=== PATIENT | female | born 1985 | race African-American/Black ===

== ENCOUNTER 2016-11-07 07:28 | Emergency (ER) | payer MEDICAID ==
[~2016-11-07] VITALS: Ht 160 cm; Wt 60.0 kg
[~2016-11-07 07:28] MED LIST: CHLO.12%30 SSP; IBUP800T23 PO; PENI500T PO; VENTAER INH
[2016-11-07 07:30] VITALS: BP 116/74; PULSE 75; RESP 16; TEMP 98.5; O2SAT 99
--- NOTE | 2016-11-07 07:47 | PD ---
HPI . left sided ear pain and face/jaw pain x 1 day Chief Complaint: ENT Complaint Time Seen by Provider: 07:46 Travel History International Travel<30 days: No Contact w/Intl Traveler<30days: No Traveled to known affect area: No History of Present Illness HPI 31 yr old female with hx of asthma here with c/o left ear pain, facial pain and jaw pain x 1 day. Patient tells me that she's had a history of oral abscess and she thinks one may be coming again. She denies any fever or chills. She has no other complaints. PFSH Past Medical History Asthma: Yes Diminished Hearing: No Headaches: Yes Psychiatric: Yes (PTSD) Respiratory: Yes (asthma) ?: Not LMP: 10/29/16 : 5 Para: 4 Miscarriage: 2 Social History Alcohol Use: No Tobacco Use: Yes (3 cigarettes a day) Substance Use: Yes (marijuana, occasional, 02/17/2016) Allergies-Medications (Allergen,Severity, Reaction): Coded Allergies: No Known Allergies (Verified , 11/07/16) Reported Meds & Prescriptions Reported Meds & Active Scripts Active Reported Proair Hfa 8.5 GM Inh (Albuterol Sulfate) 90 Mcg/Act Aer 2 Puff INH Q4-6H PRN 108 mcg/actuation Review of Systems General / Constitutional: No: Fever Eyes: No: Visual changes HENT: Positive: Earache, Other (facial pain), No: Headaches Cardiovascular: No: Chest Pain or Discomfort Respiratory: No: Shortness of Breath Gastrointestinal: No: Abdominal Pain Genitourinary: No: Dysuria Musculoskeletal: No: Pain Skin: No Rash Neurologic: No: Weakness Psychiatric: No: Depression Endocrine: No: Polydipsia Hematologic/Lymphatic: No: Easy Bruising Physical Exam Narrative GENERAL: AAO x 3, no acute distress, Well-nourished, well-developed patient. SKIN: Warm and dry. No visible rashes or bruising. HEAD: Normocephalic and atraumatic. EYES: No scleral icterus. No injection or drainage. EOM intact, PERRLA ENT: No nasal drainage noted. Mucous membranes pink. Airway patent. Oropharynx is normal. There is no definitive fluid or abscess collection. Left TM with clear effusion, tenderness to the left side maxillary sinus NECK: Supple, trachea midline. No JVD. No lymphadenopathy CARDIOVASCULAR: Regular rate and rhythm without murmurs, gallops, or rubs. RESPIRATORY: Breath sounds equal bilaterally. No accessory muscle use. No rhonchi or rales. GASTROINTESTINAL: Visual inspection is normal EXTREMITIES: No cyanosis or edema. BACK: No obvious deformity. No CVA tenderness. NEURO: CN II-12 intact, PSYCH: AAO x 3, normal affect. Data Data Last Documented VS Vital Signs Date Time Temp Pulse Resp B/P Pulse Ox O2 Delivery O2 Flow Rate FiO2 11/07/16 07:30 98.5 75 16 116/74 99 Room Air MDM Medical Decision Making Medical Screen Exam Complete: Yes Emergency Medical Condition: Yes Medical Record Reviewed: Yes Differential Diagnosis Sinusitis, otitis media, less likely oral abscess Narrative Course 31-year-old female here with complaints of left-sided ear pain, facial pain and jaw pain. On examination she appears to have an acute sinusitis. Although he did treat her with Augmentin, which will also cover for oral bugs. I've advised her to return to the emergency department for any worsening of her condition. Patient verbalized understanding of instructions, questions were answered, and thanked me for their care. I advised them if their condition worsens, please return to the nearest emergency room for further care. Diagnosis Primary Impression: Acute sinusitis Qualified Code: J01.00 - Acute non-recurrent maxillary sinusitis Patient Instructions: General Instructions Additional Instructions: Please return to emergency department if your symptoms return or worsen. Follow up with your primary care provider. Take medications as prescribed. Med/Other Pt SpecificInfo: Prescription(s) given Disposition: DISCHARGE HOME Condition: Stable Neisha Piña Nov 07, 2016 07:47
[2016-11-07] MEDS ORDERED: AUGM875T3 PO (07:52)
[2016-11-07] MEDS ORDERED: ALBUAER3 INH (07:53)
[2016-11-07 08:08] VITALS: BP 120/77; TEMP 97.8
== END 2016-11-07 08:08 | disposition home or self-care (01) ==
LOC: NEPK 07:28
DX: J01.90 Acute sinusitis, unspecified (principal); J45.909 Unspecified asthma, uncomplicated; F43.10 Post-traumatic stress disorder, unspecified; F17.210 Nicotine dependence, cigarettes, uncomplicated; Z79.899 Other long term (current) drug therapy
CPT/HCPCS: 99282

== ENCOUNTER 2017-02-27 09:16 | Emergency (ER) | payer MEDICAID ==
[~2017-02-27] VITALS: Ht 160 cm; Wt 60.0 kg
[~2017-02-27 09:16] MED LIST changes: +ALBUAER3 INH; -CHLO.12%30 SSP; -IBUP800T23 PO; -PENI500T PO; -VENTAER INH
[2017-02-27 09:18] VITALS: BP 123/79; PULSE 80; RESP 20; TEMP 98.2; O2SAT 100
--- NOTE | 2017-02-27 10:15 | PD ---
HPI Chief Complaint: Cold / Flu Symptoms Time Seen by Provider: 09:50 Travel History International Travel<30 days: No Contact w/Intl Traveler<30days: No Traveled to known affect area: No History of Present Illness HPI The patient was seen and examined in the presence of the nurse. This patient reports that she is 10 weeks , using menstrual dates. She had a positive home test. She complains of vaginal discharge. No pelvic pain or bleeding. Denies fever. Symptoms severity is mild to moderate. She also has asthma and was wheezing and is running out of her breathing inhaler. She has a cough. Sometimes when she coughs she feels chest tightness but that' s the only time. Duration 4 days. No Alleviating factors. No exacerbating factors PFSH Past Medical History Asthma: Yes Diminished Hearing: No Headaches: Yes Psychiatric: Yes (PTSD) Respiratory: Yes (asthma) ?: LMP: Dec 12 2016 : 7 Para: 5 Miscarriage: 1 Social History Alcohol Use: Yes Tobacco Use: Yes Substance Use: No Allergies-Medications (Allergen,Severity, Reaction): Coded Allergies: No Known Allergies (Verified Adverse Reaction, Unknown, 02/27/17) Reported Meds & Prescriptions Reported Meds & Active Scripts Active Reported Proair Hfa 8.5 GM Inh (Albuterol Sulfate) 90 Mcg/Act Aer 2 Puff INH Q4-6H PRN 108 mcg/actuation Review of Systems General / Constitutional: No: Fever Eyes: No: Visual changes HENT: Positive: Rhinorrhea, Congestion, No: Headaches Cardiovascular: No: Chest Pain or Discomfort Respiratory: Positive: Cough, Wheezing, No: Shortness of Breath Gastrointestinal: No: Abdominal Pain Genitourinary: Positive: Discharge, No: Dysuria Musculoskeletal: No: Pain Skin: No Rash Neurologic: No: Weakness Psychiatric: No: Depression Endocrine: No: Polydipsia Hematologic/Lymphatic: No: Easy Bruising Physical Exam Narrative GENERAL: Well-nourished, well-developed patient in no apparent distress. SKIN: Focused skin assessment reveals no rash and nodules. Skin is Warm and dry. HEAD: Atraumatic. Normocephalic. EYES: Pupils equal and round. No scleral icterus. No injection or drainage. ENT: No nasal bleeding or discharge. Mucous membranes pink and moist. Nares shows rhinorrhea NECK: Trachea midline. No JVD. CARDIOVASCULAR: Regular rate and rhythm. No murmur appreciated. RESPIRATORY: No accessory muscle use. Clear to auscultation. Breath sounds equal bilaterally. GASTROINTESTINAL: Abdomen soft, non-tender, nondistended. Hepatic and splenic margins not palpable. MUSCULOSKELETAL: No obvious deformities. No clubbing. No cyanosis. No edema. NEUROLOGICAL: Awake and alert. No obvious cranial nerve deficits. Motor grossly within normal limits. Normal speech. PSYCHIATRIC: Appropriate mood and affect; insight and judgment normal. Pelvic: Minor white/rocha discharge in the vault. No blood or lesions or cervical motion tenderness Data Data Last Documented VS Vital Signs Date Time Temp Pulse Resp B/P (MAP) Pulse Ox O2 Delivery O2 Flow Rate FiO2 02/27/17 09:59 96 Room Air 02/27/17 09:18 98.2 80 20 123/79 (94) Orders Orders Electrocardiogram (02/27/17 ) Gc And Chlamydia Pcr (02/27/17 10:07) Wet Prep Profile (02/27/17 10:07) Labs Laboratory Tests Test 02/27/17 10:15 Clue Cells (Wet Prep) PRESENT Vaginal Trichomonas (Wet Prep) PRESENT Vaginal Yeast (Wet Prep) NONE SEEN MDM Medical Decision Making Medical Screen Exam Complete: Yes Emergency Medical Condition: Yes Medical Record Reviewed: Yes Differential Diagnosis PID, vaginitis, cervicitis, asthma, URI Narrative Course I have reviewed the patient's electronic medical record. GC and chlamydia obtained Wet prep shows both Trichomonas and BV I'm going to prescribe her Flagyl which should cover both She needs to get care and she has a physician to call for that Advised to stop smoking Diagnosis Primary Impression: Trichomonas vaginitis Additional Impressions: Bacterial vaginosis Bronchitis Additional Instructions: Stop smoking Take Flagyl for one week Follow-up with your [employer] physician for care Med/Other Pt SpecificInfo: Prescription(s) given Scripts Metronidazole (Flagyl) 500 Mg Tab 500 MG PO TID for Infection for 7 Days, TAB 0 Refills Prov: Jagdish Mendez MD 02/27/17 Disposition: 01 DISCHARGE HOME Condition: Stable Jagdish Mendez MD Feb 27, 2017 10:15
[2017-02-27] MEDS ORDERED: METR-1 PO (11:48)
[2017-02-27 12:07] VITALS: BP 132/56
[2017-02-27 12:19] LABS: CHLAMYDIA PCR DETECTED (NOT DETECT); NEISSERIA PCR NOT DETECTED (NOT DETECT)
--- NOTE | 2017-02-27 18:34 | EKG ---
Date Performed: 02/27/2017 Time Performed: 09:29:29 PTAGE: 31 years EKG: Sinus rhythm POSSIBLE RIGHT VENTRICULAR CONDUCTION DELAY BORDERLINE ECG NO PREVIOUS TRACING DOCTOR: Fadia Anderson Interpretating Date/Time 02/27/2017 18:32:53
== END 2017-02-27 12:08 | disposition home or self-care (01) ==
LOC: NEPD 09:16
DX: O99.511 Diseases of the respiratory system complicating pregnancy, first trimester (principal); J40 Bronchitis, not specified as acute or chronic; J45.909 Unspecified asthma, uncomplicated; O98.311 Other infections with a predominantly sexual mode of transmission complicating pregnancy, first trimester; A59.01 Trichomonal vulvovaginitis; O99.341 Other mental disorders complicating pregnancy, first trimester
CPT/HCPCS: 87210; 87491; 87591; 93005; 99284

== ENCOUNTER 2017-05-21 13:42 | Emergency (ER) | payer MEDICAID ==
[~2017-05-21] VITALS: Ht 160 cm; Wt 63.5 kg
[~2017-05-21 13:42] MED LIST changes: +METR-1 PO
[2017-05-21] MEDS ORDERED: LACTATED RINGER'S 1000 ML INJ 1,000 ML IV ONE (15:00)
--- NOTE | 2017-05-21 15:05 | PD ---
HPI Chief Complaint abdominal cramping Date Seen: May 21, 2017 Time Seen: 14:18 (Jade Haddad MD R1) Travel History International Travel<30 Days: No Contact w/Intl Traveler<30Days: No Known Affected Area: No (Jade Haddad MD R1) History of Present Illness HPI Pt is a with a PMH of asthma presenting to the OB ED with abdominal cramping that started at 1030 this AM. States that it feels differently from [place] contractions. 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 The pain is located in her upper and lower abdomen that happens every 20-30minutes, but was more often while she was at work. No vaginal bleeding, has discharge, but is usual for her during . No LOF, no dysuria, no VALENCIA/blurry vision, no leg pain. She feels the baby move. Weeks Gestation: 22 Para: 5 : 7 Last Menstrual Period: Dec 12, 2016 Miscarriage: 1 : 0 (Jade Haddad MD R1) History Past Medical History Narrative Medical Asthma Migraines PTSD, diagnosed at 16yo (Jade Haddad MD R1) Obstetric History Obstetric History , all term 1 miscarriage in 2005 (Jade Haddad MD R1) Past Surgical History Surgical History: No Previous Surgery (Jade Haddad MD R1) Family History Narrative Family History HTN and DM in parents (Jade Haddad MD R1) Social History Narrative Social History lives with friend Alcohol Use: Yes (a glass of red wine, 1x/mth) Tobacco Use: Yes (2 cigarettes per day, cut down from 1 ppd) Substance Abuse: Yes (marijuana, 1 joint per day to every other day) (Jade Haddad MD R1) Allergies-Medications (Allergen,Severity, Reaction): Coded Allergies: No Known Allergies (Verified Allergy, Unknown, 05/21/17) Home Meds Active Scripts Metronidazole (Flagyl) 500 Mg Tab, 500 MG PO TID for Infection for 7 Days, TAB 0 Refills Prov:Jagdish Mendez MD 02/27/17 Reported Medications Albuterol 8.5 GM Inh (Proair Hfa 8.5 GM Inh) 90 Mcg/Act Aer, 2 PUFF INH Q4-6H Y for SHORTNESS OF BREATH, #1 INHALER 0 Refills 108 mcg/actuation 11/07/16 Review of Systems General / Constitutional: No: Fever Eyes: No: Visual changes HENT: No: Headaches Respiratory: No: Short of Breath Genitourinary: No: Dysuria Skin: No Rash Neurologic: No: Weakness, Dizziness (Jade Haddad MD R1) Physical Exam Narrative GENERAL: Well-nourished, well-developed patient laying in bed, in no acute distress. SKIN: Warm and dry. HEAD: Normocephalic and atraumatic. EYES: No scleral icterus. No injection or drainage. ENT: No nasal drainage noted. Mucous membranes pink. Airway patent. NECK: Supple, trachea midline. No JVD. CARDIOVASCULAR: Regular rate and rhythm without murmurs, gallops, or rubs. RESPIRATORY: Breath sounds equal bilaterally. No accessory muscle use. BREASTS: Bilateral exam showed no masses , no retractions, no nipple discharge. ABDOMEN/GI: Abdomen soft, non-tender, bowel sounds present, no rebound, no guarding Gravid to 22 weeks size GENITOURINARY: External Genitalia: intact and normal in appearance Cervix: thick, posterior Dilatation: 0 Effacement: 0 Station: -3 Membranes: intact or ruptured Uterine Contractions: none FHT's: heart not detected on tocometer due to gestational age EXTREMITIES: No cyanosis or edema. BACK: Nontender without obvious deformity. No CVA tenderness. NEUROLOGICAL: Awake and alert. Motor and sensory grossly within normal limits. Five out of 5 muscle strength in all muscle groups. Normal speech. (Jade Haddad MD R1) Data Data Vital Signs Reviewed: Yes Orders Orders Vital Signs (Adult) .ON ADMISSION (05/21/17 14:46) ^ Labor Status (05/21/17 14:46) Urinalysis - C+S If Indicated (05/21/17 14:46) ^ Non Stress Test (05/21/17 14:46) ^ Hydration (05/21/17 14:46) Lr (Bolus) Inj (05/21/17 15:00) (Jade Haddad MD R1) [facility] Medical Record Reviewed: Yes Plan 31yo at 22/6 weeks gestation presenting to the OB ED with abdominal cramping since this morning. Is likely due to dehydration. -Urine dip shows ketones -UA is negative for nitrites and leukocyte esterase -1L bolus of LR -Encouraged pt to increase fluid intake, especially at work (Jade Haddad MD R1) Diagnosis Diagnosis: Primary Impression: Abdominal cramping affecting Additional Impressions: Antepartum dehydration 21 weeks gestation of Disposition: 01 DISCHARGE HOME Condition: Good Departure Forms: Work Release Enter return to work date: May 23, 2017 Jade Haddad MD R1 May 21, 2017 15:05 Dayana Stinson MD May 21, 2017 15:39
[2017-05-21 16:06] LABS: BACTERIA, URINE RARE /hpf; BILIRUBIN, URINE NEG (NEG); BLOOD, URINE TRACE (NEG); GLUCOSE,URINE NEG (NEG); KETONE, URINE 80 mg/dL (NEG); MUCUS URINE FEW /lpf (OCC); NITRITE,URINE NEG (NEG); SQUAMOUS EPITHELIAL CELL URINE 4 /hpf (0-5); URINE COLOR YELLOW (YELLW/STRAW); URINE LEUKOCYTE ESTERASE NEG (NEG)
== END 2017-05-21 16:15 | disposition home or self-care (01) ==
LOC: HOBED 13:42
DX: O26.892 Other specified pregnancy related conditions, second trimester (principal); R10.9 Unspecified abdominal pain; E86.0 Dehydration; Z3A.21 21 weeks gestation of pregnancy; J45.909 Unspecified asthma, uncomplicated; O99.332 Smoking (tobacco) complicating pregnancy, second trimester; F17.210 Nicotine dependence, cigarettes, uncomplicated
CPT/HCPCS: 81001; 96360; 99284; J7120

== ENCOUNTER 2017-09-05 05:11 | Inpatient (IN) | payer MEDICAID ==
[~2017-09-05] VITALS: Ht 167.6 cm; Wt 66.0 kg
[2017-09-05] VITALS (14 sets, daily range): BP systolic 95–136; BP diastolic 59–95; PULSE 61–157; RESP 16–18; TEMP 97.7–98.5; O2SAT 98
[2017-09-05] MEDS ORDERED: OXYTOCIN 30 UNITS-500ML PREMIX 500 ML ONE (05:34)
[2017-09-05] MEDS ORDERED: LACTATED RINGER'S 1000 ML INJ 1,000 ML IV PRN (05:37)
[2017-09-05] MEDS: LACTATED RINGER'S 1000 ML INJ 1,000 ML IV SCH (05:37)
--- NOTE | 2017-09-05 05:44 | PD ---
HPI Chief Complaint Contractions Date Seen: September 05, 2017 Time Seen: 05:40 Travel History International Travel<30 Days: No Contact w/Intl Traveler<30Days: No Known Affected Area: No History of Present Illness HPI 32-year-old who is at 37 weeks gestation by very limited criteria as she has had new care comes in complaining of contractions and pelvic pressure. Patient has had no care this except for a couple visits her primary care doctor and she has an estimated due date of September 25, 2017. Patient does come complaining of contractions for the past couple hours. Patient admits to daily marijuana use but denies any additional drug use Weeks Gestation: 37 Para: 6 : 7 History Past Medical History Narrative Medical Asthma with occasional albuterol use Obstetric History Obstetric History 6 spontaneous vaginal deliveries Past Surgical History Surgical History: No Previous Surgery Family History Family History: Negative Social History Alcohol Use: No Tobacco Use: No Substance Abuse: Yes Allergies-Medications (Allergen,Severity, Reaction): Coded Allergies: No Known Allergies (Verified Allergy, Unknown, 05/21/17) Home Meds Active Scripts Metronidazole (Flagyl) 500 Mg Tab, 500 MG PO TID for Infection for 7 Days, TAB 0 Refills Prov:Jagdish Mendez MD 02/27/17 Reported Medications Albuterol 8.5 GM Inh (Proair Hfa 8.5 GM Inh) 90 Mcg/Act Aer, 2 PUFF INH Q4-6H Y for SHORTNESS OF BREATH, #1 INHALER 0 Refills 108 mcg/actuation 11/07/16 Review of Systems Except as stated in HPI: all other systems reviewed are Neg Physical Exam Narrative GENERAL: Well-nourished, well-developed patient. SKIN: Warm and dry. HEAD: Normocephalic and atraumatic. EYES: No scleral icterus. No injection or drainage. ENT: No nasal drainage noted. Mucous membranes pink. Airway patent. NECK: Supple, trachea midline. No JVD. CARDIOVASCULAR: Regular rate and rhythm without murmurs, gallops, or rubs. RESPIRATORY: Breath sounds equal bilaterally. No accessory muscle use. ABDOMEN/GI: Abdomen soft, non-tender, bowel sounds present, no rebound, no guarding Gravid to [35-] weeks size Fundal Height: [-] GENITOURINARY: External Genitalia: intact and normal in appearance BUS glands: [-] Normal Cervix: [-] Dilatation: [-] 8 Effacement: [-] 90 Station: [-] Large bulging bag of water Presentation: [-] Membranes: [intact or ruptured] intact Uterine Contractions: [-] Every 5 FHT's: Category: [-] 1 Baseline: [-] 140 Reactive: [-] Moderate Variability: [-] Moderate Decels: [-] Absent EXTREMITIES: No cyanosis or edema. BACK: Nontender without obvious deformity. No CVA tenderness. NEUROLOGICAL: Awake and alert. Motor and sensory grossly within normal limits. Five out of 5 muscle strength in all muscle groups. Normal speech. Data Data Orders Orders Ob (2e) Additional Admit Info (09/05/17 05:32) Oxytocin 30 Units-500ml Premix (Pitocin (09/05/17 05:34) Admit To Inpatient (09/05/17 ) Vital Signs (Adult) .Per protocol (09/05/17 05:37) Heart (09/05/17 05:37) Amnioinfusion (09/05/17 05:37) Urinary Catheter Management .ONCE (09/05/17 05:37) Diet Npo (09/05/17 Breakfast) Lactated Ringer's 1000 Ml Inj (Lr 1000 M (09/05/17 05:37) Lactated Ringer's 1000 Ml Inj (Lr 1000 M (09/05/17 05:37) Sodium Chlorid 0.9% 500 Ml Inj (Ns 500 M (09/05/17 05:45) Sodium Chlor 0.9% 1000 Ml Inj (Ns 1000 M (09/05/17 05:57) Lidocaine 1% Inj (50 Ml) (Xylocaine 1% I (09/05/17 05:45) Citric Acid-Sodium Citrate Liq (Bicitra (09/05/17 05:45) Fentanyl Inj (Fentanyl Inj) (09/05/17 05:45) Fentanyl Inj (Fentanyl Inj) (09/05/17 05:45) Complete Blood Count With Diff (09/05/17 05:37) Hold Clot (09/05/17 05:37) Abo/Rh Blood Type (09/05/17 05:37) Urinalysis - C+S If Indicated (09/05/17 05:37) Drug Screen, Random Urine (09/05/17 05:37) Ob/Psych Drug Screen, Urine (09/05/17 05:37) Rapid Plasma Regin (Rpr) W Ttr (09/05/17 05:37) Hepatitis Profile (09/05/17 05:37) No Care Spec Serology (09/05/17 05:37) Resp Oxygen Non Rebreathe Mask (09/05/17 ) ^ Epidural / Intrathecal Infus (09/05/17 05:37) Oxytocin 30 Units-500ml Premix (Pitocin (09/05/17 05:45) Lidocaine 1% Inj (50 Ml) (Xylocaine 1% I (09/05/17 05:45) Light Mineral Oil (Muri-Lube Oil) (09/05/17 05:45) Inpatient Certification (09/05/17 ) [facility] Medical Record Reviewed: Yes Plan 32-year-old who is at 37 weeks by very limited criteria and advanced labor No care History of substance abuse Admit to labor and delivery Diagnosis Diagnosis: Primary Impression: 37 weeks gestation of Additional Impressions: Labor, precipitous, antepartum No care in current in third trimester Substance abuse affecting in third trimester, antepartum Shweta Yanez MD September 05, 2017 05:43
[2017-09-05] MEDS ORDERED: MINERAL OIL 10 ML VIAL TOPICAL PRN (05:45)
[2017-09-05] MEDS ORDERED: LIDOCAINE HCL 1% 50 ML VIAL INFIL PRN (05:45)
[2017-09-05] MEDS ORDERED: CITRIC ACID-SODIUM CITRATE LIQ 30 ML UDC PO SCH (05:45)
[2017-09-05] MEDS ORDERED: LIDOCAINE HCL 1% 50 ML VIAL I-DERMAL PRN (05:45)
[2017-09-05] MEDS ORDERED: OXYTOCIN 30 UNITS-500ML PREMIX 500 ML IV ONE (05:45)
[2017-09-05] MEDS ORDERED: SODIUM CHLORID 0.9% 500 ML INJ 500 ML IV PRN (05:45)
[2017-09-05] MEDS ORDERED: SODIUM CHLOR 0.9% 1000 ML INJ 1,000 ML IV PRN (05:57)
[2017-09-05 05:58] LABS: AUTOMATED NEUTROPHIL # 5.6 TH/MM3 (1.8-7.7); BASOPHIL % 0.6 % (0.0-2.0); EOSINOPHIL # 0.1 TH/MM3 (0-0.4); EOSINOPHIL % 1.7 % (0.0-4.0); HEMATOCRIT 37.4 % (35.0-46.0); HEMOGLOBIN 12.6 GM/DL (11.6-15.3); LYMPH % 22.7 % (9.0-44.0); LYMPHOCYTE # 1.9 TH/MM3 (1.0-4.8); MEAN CELL VOLUME 87.6 FL (80.0-100.0); MEAN CORPUSCULAR HEMOGLOBIN 29.4 PG (27.0-34.0); MEAN CORPUSCULAR HGB CONC 33.6 % (32.0-36.0); MEAN PLATELET VOLUME 6.7 FL (7.0-11.0); MONO % 6.7 % (0.0-8.0); MONOCYTE # 0.6 TH/MM3 (0-0.9); NEUT % 68.3 % (16.0-70.0); PLATELET COUNT 366 TH/MM3 (150-450); RED BLOOD COUNT 4.27 MIL/MM3 (4.00-5.30); RED CELL DISTRIBUTION WIDTH 13.2 % (11.6-17.2); WHITE BLOOD COUNT 8.3 TH/MM3 (4.0-11.0)
--- NOTE | 2017-09-05 06:07 | PD.OB.DELI ---
Weeks gestation: 37 Pt started active labor?: Yes Medical induction of labor?: No Artificial rupture of membrane: No Artificial ROM date: September 05, 2017 Artifical ROM time: 05:46 (Thick meconium ) Anesthesia: None Episiotomy: None Vaginal Delivery: Normal Presentation: Occiput anterior, Vertex Nuchal Cord: x1 (Tight nuchal cord noted clamped and cut at perineum) Delayed cord clamping (45 sec): No Shoulder Dystocia: Suprapubic pressure given, Stephania maneuver done ( Shoulder dystocia left shoulder x 30 seconds relieved with positioning into Stephania and Suprpubic pressure) Infant: Male Delivery date: September 05, 2017 Delivery time: 05:52 One Minute : 8 Five Minute : 9 Placenta: Spontaneous delivery, Intact Laceration: No lacerations Estimated blood loss: 300cc Shweta Yanez MD September 05, 2017 06:07
--- NOTE | 2017-09-05 06:09 | HHI.HP ---
History & Physical H&P HPI Chief Complaint Contractions Date Seen: September 05, 2017 Time Seen: 05:40 Travel History International Travel<30 Days: No Contact w/Intl Traveler<30Days: No Known Affected Area: No History of Present Illness HPI 32-year-old who is at 37 weeks gestation by very limited criteria as she has had new care comes in complaining of contractions and pelvic pressure. Patient has had no care this except for a couple visits her primary care doctor and she has an estimated due date of September 25, 2017. Patient does come complaining of contractions for the past couple hours. Patient admits to daily marijuana use but denies any additional drug use Weeks Gestation: 37 Para: 6 : 7 History (Limited) History Past Medical History Narrative Medical Asthma with occasional albuterol use Obstetric History Obstetric History 6 spontaneous vaginal deliveries Past Surgical History Surgical History: No Previous Surgery Family History Family History: Negative Social History Alcohol Use: No Tobacco Use: No Substance Abuse: Yes Allergies-Medications Allergies-Medications (Allergen,Severity, Reaction): Coded Allergies: No Known Allergies (Verified Allergy, Unknown, 05/21/17) Home Meds Active Scripts Metronidazole (Flagyl) 500 Mg Tab, 500 MG PO TID for Infection for 7 Days, TAB 0 Refills Prov:Jagdish Mendez MD 02/27/17 Reported Medications Albuterol 8.5 GM Inh (Proair Hfa 8.5 GM Inh) 90 Mcg/Act Aer, 2 PUFF INH Q4-6H Y for SHORTNESS OF BREATH, #1 INHALER 0 Refills 108 mcg/actuation 11/07/16 ROS Review of Systems Except as stated in HPI: all other systems reviewed are Neg Physical Exam Physical Exam Narrative GENERAL: Well-nourished, well-developed patient. SKIN: Warm and dry. HEAD: Normocephalic and atraumatic. EYES: No scleral icterus. No injection or drainage. ENT: No nasal drainage noted. Mucous membranes pink. Airway patent. NECK: Supple, trachea midline. No JVD. CARDIOVASCULAR: Regular rate and rhythm without murmurs, gallops, or rubs. RESPIRATORY: Breath sounds equal bilaterally. No accessory muscle use. ABDOMEN/GI: Abdomen soft, non-tender, bowel sounds present, no rebound, no guarding Gravid to [35-] weeks size Fundal Height: [-] GENITOURINARY: External Genitalia: intact and normal in appearance BUS glands: [-] Normal Cervix: [-] Dilatation: [-] 8 Effacement: [-] 90 Station: [-] Large bulging bag of water Presentation: [-] Membranes: [intact or ruptured] intact Uterine Contractions: [-] Every 5 FHT's: Category: [-] 1 Baseline: [-] 140 Reactive: [-] Moderate Variability: [-] Moderate Decels: [-] Absent EXTREMITIES: No cyanosis or edema. BACK: Nontender without obvious deformity. No CVA tenderness. NEUROLOGICAL: Awake and alert. Motor and sensory grossly within normal limits. Five out of 5 muscle strength in all muscle groups. Normal speech. Data Data Data Orders Orders Ob (2e) Additional Admit Info (09/05/17 05:32) Oxytocin 30 Units-500ml Premix (Pitocin (09/05/17 05:34) Admit To Inpatient (09/05/17 ) Vital Signs (Adult) .Per protocol (09/05/17 05:37) Heart (09/05/17 05:37) Amnioinfusion (09/05/17 05:37) Urinary Catheter Management .ONCE (09/05/17 05:37) Diet Npo (09/05/17 Breakfast) Lactated Ringer's 1000 Ml Inj (Lr 1000 M (09/05/17 05:37) Lactated Ringer's 1000 Ml Inj (Lr 1000 M (09/05/17 05:37) Sodium Chlorid 0.9% 500 Ml Inj (Ns 500 M (09/05/17 05:45) Sodium Chlor 0.9% 1000 Ml Inj (Ns 1000 M (09/05/17 05:57) Lidocaine 1% Inj (50 Ml) (Xylocaine 1% I (09/05/17 05:45) Citric Acid-Sodium Citrate Liq (Bicitra (09/05/17 05:45) Fentanyl Inj (Fentanyl Inj) (09/05/17 05:45) Fentanyl Inj (Fentanyl Inj) (09/05/17 05:45) Complete Blood Count With Diff (09/05/17 05:37) Hold Clot (09/05/17 05:37) Abo/Rh Blood Type (09/05/17 05:37) Urinalysis - C+S If Indicated (09/05/17 05:37) Drug Screen, Random Urine (09/05/17 05:37) Ob/Psych Drug Screen, Urine (09/05/17 05:37) Rapid Plasma Regin (Rpr) W Ttr (09/05/17 05:37) Hepatitis Profile (09/05/17 05:37) No Care Spec Serology (09/05/17 05:37) Resp Oxygen Non Rebreathe Mask (09/05/17 ) ^ Epidural / Intrathecal Infus (09/05/17 05:37) Oxytocin 30 Units-500ml Premix (Pitocin (09/05/17 05:45) Lidocaine 1% Inj (50 Ml) (Xylocaine 1% I (09/05/17 05:45) Light Mineral Oil (Muri-Lube Oil) (09/05/17 05:45) Inpatient Certification (09/05/17 ) MDM MDM Medical Record Reviewed: Yes Plan 32-year-old who is at 37 weeks by very limited criteria and advanced labor No care History of substance abuse Admit to labor and delivery Diagnosis Diagnosis: Primary Impression: 37 weeks gestation of Additional Impressions: Labor, precipitous, antepartum No care in current in third trimester Substance abuse affecting in third trimester, antepartum Shweta Yanez MD September 05, 2017 06:09
[2017-09-05 06:14] LABS: BACTERIA, URINE OCC /hpf; BILIRUBIN, URINE NEG (NEG); BLOOD, URINE NEG (NEG); GLUCOSE,URINE NEG (NEG); KETONE, URINE NEG (NEG); MUCUS URINE FEW /lpf (OCC); NITRITE,URINE NEG (NEG); PH, URINE 6.5 (5.0-8.5); SQUAMOUS EPITHELIAL CELL URINE 4 /hpf (0-5); URINE COLOR YELLOW (YELLW/STRAW); URINE LEUKOCYTE ESTERASE NEG (NEG)
[2017-09-05] MEDS ORDERED: ALUMINUM/MAGNESIUM/SIMETH 30 ML CUP PO PRN (06:15)
[2017-09-05] MEDS ORDERED: WITCH HAZEL 50%/GLYCERIN 12.5% 40 PAD JAR TOPICAL PRN (06:15)
[2017-09-05] MEDS ORDERED: DOCUSATE SODIUM 50 MG/SENNA 8.6 MG TAB PO PRN (06:15)
[2017-09-05] MEDS ORDERED: OXYTOCIN 30 UNITS-500ML PREMIX 500 ML IV SCH (06:15)
[2017-09-05] MEDS ORDERED: ZOLPIDEM TARTRATE 5 MG TAB PO PRN (06:15)
[2017-09-05] MEDS ORDERED: ONDANSETRON ODT 4 MG TAB PO PRN (06:15)
[2017-09-05] MEDS ORDERED: SODIUM CHLORIDE 0.9% FLUSH 10 ML FLUSH IV FLUSH PRN (06:15)
[2017-09-05] MEDS ORDERED: BENZOCAINE 20% TOPICAL SPRAY 60 ML CAN TOPICAL PRN (06:15)
[2017-09-05] MEDS: IBUPROFEN 800 MG TAB PO PRN ×2 (06:43→15:04)
[2017-09-05] MEDS ORDERED: SODIUM CHLORIDE 0.9% FLUSH 10 ML FLUSH IV FLUSH SCH (09:00)
[2017-09-05] MEDS: ACETAMINOPHEN 325 MG TAB PO PRN ×3 (09:16→19:11)
[2017-09-05] MEDS ORDERED: MEASLES, MUMPS, RUBELLA VACCINE 0.5 ML VIAL SQ ONE (16:00)
[2017-09-05] MEDS ORDERED: DIPHTH/TETANUS/ACEL PERTUSSIS (BOOSTER) 0.5 ML VIAL/PFS IM ONE (16:00)
[2017-09-06] MEDS: IBUPROFEN 800 MG TAB PO PRN ×3 (00:05→19:58)
[2017-09-06] MEDS: ACETAMINOPHEN 325 MG TAB PO PRN ×4 (00:05→19:58)
[2017-09-06] MEDS: LACTATED RINGER'S 1000 ML INJ 1,000 ML IV SCH ×2 (07:35→13:37)
--- NOTE | 2017-09-06 09:30 | HHI.OB ---
Subjective Post Day: 1 Remarks Patient seen and examined this morning. AFVSS overnight. day #1. Pain well-controlled. Decreased lochia. Denies dysuria. No breast tenderness. Appetite good. No nausea or vomiting. Positive flatus. No bowel movement yet. Ambulating well. Denies calf pain, shortness of breath, or cough. She otherwise has no other complaints or concerns this morning. Objective Vitals/I&O Vital Signs Date Time Temp Pulse Resp B/P (MAP) Pulse Ox O2 Delivery O2 Flow Rate FiO2 09/05/17 20:00 98.3 86 18 95/62 (73) 98 09/05/17 11:49 98.5 83 18 120/78 (92) Objective Remarks GENERAL: Well-nourished, well-developed patient. CARDIOVASCULAR: Regular rate and rhythm without murmurs, gallops, or rubs. RESPIRATORY: Breath sounds equal bilaterally. No accessory muscle use. ABDOMEN/GI: Abdomen soft, non-tender. Fundus: Firm, non-tender at umbilicus. GENITOURINARY: Light to moderate bleeding. EXTREMITIES: No cyanosis or edema, non-tender, without signs of DVT. Medications and IVs Current Medications Medications (Trade) Dose Ordered Sig/Amparo Route Start Time Stop Time Status Last Admin Lactated Ringer's 1,000 ml @ 125 mls/hr Q8H IV 09/05/17 05:37 09/05/17 05:37 Lactated Ringer's 1,000 ml @ 3,000 mls/hr Q20M PRN IV 09/05/17 05:37 Sodium Chloride 500 ml @ 1,000 mls/hr ONCE PRN IV 09/05/17 05:45 Sodium Chloride 1,000 ml @ 100 mls/hr Q10H PRN IV 09/05/17 05:57 (Xylocaine 1% Inj (50 ml)) 0.1 ml UNSCH X1 PRN I-DERMAL 09/05/17 05:45 09/08/17 05:44 (Bicitra Liq) 30 ml [employer]ITARIAN PO 09/05/17 05:45 09/09/17 05:44 (fentaNYL INJ) 50 mcg Q1H PRN IV PUSH 09/05/17 05:45 (fentaNYL INJ) 100 mcg Q1H PRN IV PUSH 09/05/17 05:45 (Xylocaine 1% Inj (50 ml)) 10 ml UNSCH X1 PRN INFIL 09/05/17 05:45 09/07/17 05:44 (NS Flush) 2 ml BID IV FLUSH 09/05/17 09:00 (NS Flush) 2 ml UNSCH PRN IV FLUSH 09/05/17 06:15 (Tylenol) 650 mg Q4H PRN PO 09/05/17 06:15 09/06/17 08:06 (Motrin) 800 mg Q8H PRN PO 09/05/17 06:15 09/06/17 08:06 (Americaine 20% Top Spr) 1 spray Q4H PRN TOPICAL 09/05/17 06:15 09/05/17 09:16 (Tucks Pads) 1 applic QID PRN TOPICAL 09/05/17 06:15 09/05/17 09:16 (Bre-Colace) 2 tab Q12H PRN PO 09/05/17 06:15 (Ambien) 5 mg HS PRN PO 09/05/17 06:15 (Mag-Al Plus Susp Liq) 15 ml Q8H PRN PO 09/05/17 06:15 (Zofran Odt) 4 mg Q6H PRN PO 09/05/17 06:15 Assessment/Plan Problem List: (1) 37 weeks gestation of ICD Codes: Z3A.37 - 37 weeks gestation of Status: Acute Plan: 32-year-old G 7 p 7 PPD#1. 1. Care - AFVSS - Encouraged OOB, as tolerated - Motrin prn pain - Advised pelvic rest x 6 weeks - Contraception: Patient is interested interested in getting IUD placement for control and she will discuss that with as an outpatient with her OB practitioner. - Will f/u with OB provider in 6 weeks Discharge Planning Plan for discharge tomorrow Raheem Walters MD, R1 September 06, 2017 09:30
[2017-09-06 21:04] VITALS: BP 113/66; PULSE 72; RESP 18; TEMP 98.2
[2017-09-07] MEDS: IBUPROFEN 800 MG TAB PO PRN ×2 (03:00→10:51)
[2017-09-07] MEDS: ACETAMINOPHEN 325 MG TAB PO PRN ×2 (03:00→10:51)
[2017-09-07 08:20] VITALS: BP 109/66; PULSE 66; RESP 18; TEMP 98.2
--- NOTE | 2017-09-07 08:31 | HHI.OB ---
Subjective Post Day: 2 Remarks 32 y/o female on PPD #2. She reports that she is doing well. AFVSS overnight. Pain is well-controlled, 2/10 on pain scale. Decreased lochia. Denies dysuria. Appetite good. No abdominal pain, nausea or vomiting. Positive flatus. No bowel movement yet. Received Bre-Colace yesterday. Ambulating well. Has been OOB without problem. Denies calf pain, chest pain, shortness of breath , or cough. Objective Vitals/I&O Vital Signs Date Time Temp Pulse Resp B/P (MAP) Pulse Ox O2 Delivery O2 Flow Rate FiO2 09/06/17 21:04 98.2 72 18 113/66 (82) Objective Remarks GENERAL: Well-nourished, well-developed patient. In no acute distress. CARDIOVASCULAR: Regular rate and rhythm without murmurs, gallops, or rubs. RESPIRATORY: Breath sounds equal bilaterally. No accessory muscle use. ABDOMEN/GI: Abdomen soft, non-tender. Fundus: Firm, non-tender at umbilicus. GENITOURINARY: Light to moderate bleeding. EXTREMITIES: No cyanosis or edema, non-tender, without signs of DVT. NEUROLOGICAL: Awake and alert. Normal speech. Medications and IVs Current Medications Medications (Trade) Dose Ordered Sig/Amparo Route Start Time Stop Time Status Last Admin Lactated Ringer's 1,000 ml @ 125 mls/hr Q8H IV 09/05/17 05:37 09/05/17 05:37 Lactated Ringer's 1,000 ml @ 3,000 mls/hr Q20M PRN IV 09/05/17 05:37 Sodium Chloride 500 ml @ 1,000 mls/hr ONCE PRN IV 09/05/17 05:45 Sodium Chloride 1,000 ml @ 100 mls/hr Q10H PRN IV 09/05/17 05:57 (Xylocaine 1% Inj (50 ml)) 0.1 ml UNSCH X1 PRN I-DERMAL 09/05/17 05:45 09/08/17 05:44 (Bicitra Liq) 30 ml [employer] PO 09/05/17 05:45 09/09/17 05:44 (fentaNYL INJ) 50 mcg Q1H PRN IV PUSH 09/05/17 05:45 (fentaNYL INJ) 100 mcg Q1H PRN IV PUSH 09/05/17 05:45 (NS Flush) 2 ml BID IV FLUSH 09/05/17 09:00 (NS Flush) 2 ml UNSCH PRN IV FLUSH 09/05/17 06:15 (Tylenol) 650 mg Q4H PRN PO 09/05/17 06:15 09/07/17 03:00 (Motrin) 800 mg Q8H PRN PO 09/05/17 06:15 09/07/17 03:00 (Americaine 20% Top Spr) 1 spray Q4H PRN TOPICAL 09/05/17 06:15 09/05/17 09:16 (Tucks Pads) 1 applic QID PRN TOPICAL 09/05/17 06:15 09/05/17 09:16 (Bre-Colace) 2 tab Q12H PRN PO 09/05/17 06:15 09/06/17 19:58 (Ambien) 5 mg HS PRN PO 09/05/17 06:15 (Mag-Al Plus Susp Liq) 15 ml Q8H PRN PO 09/05/17 06:15 (Zofran Odt) 4 mg Q6H PRN PO 09/05/17 06:15 Assessment/Plan Problem List: (1) 37 weeks gestation of ICD Codes: Z3A.37 - 37 weeks gestation of Status: Acute Plan: 32-year-old G 7 P6 PPD#2. 1. Care - AFVSS - Encouraged continued OOB, as tolerated - Motrin prn pain - Advised pelvic rest x 6 weeks - Contraception: Patient is interested interested in getting IUD placement for control and she will discuss that as an outpatient with her OB practitioner. - Will f/u with OB provider in 6 weeks Note completed by Rubi Davenport, MS4 Discharge Planning Anticipated discharge today. Raheem Walters MD, R1 September 07, 2017 08:31
[2017-09-07] MEDS ORDERED: IBUP1TAB7 PO (08:35)
--- NOTE | 2017-09-07 09:12 | HHI.DCPOC ---
Discharge Care Plan Diagnosis: (1) 37 weeks gestation of Goals to Promote Your Health * To prevent worsening of your condition and complications * To maintain your health at the optimal level Directions to Meet Your Goals Take your medications as prescribed Follow your dietary instruction Follow activity as directed Keep your appointments as scheduled Take your immunizations and boosters as scheduled If your symptoms worsen call your PCP, if no PCP go to Urgent Care Center or Emergency Room Smoking is Dangerous to Your Health. Avoid second hand smoke Call the 24-hour hour crisis hotline for domestic abuse at Raheem Walters MD, R1 September 07, 2017 09:12
== END 2017-09-07 13:19 | disposition home or self-care (01) | DRG 775 ==
LOC: HOBED 05:11 → H2EA 05:32 → H1EA 07:38
PROVIDERS: ADMIT Obstetrics & Gynecology Obstetrics; ATTEND Obstetrics & Gynecology Obstetrics
PROC: 10E0XZZ Delivery of Products of Conception, External Approach (ICD-10-PCS; principal; 2017-09-05)
DX: O62.3 Precipitate labor (principal); O99.324 Drug use complicating childbirth; F12.90 Cannabis use, unspecified, uncomplicated; O66.0 Obstructed labor due to shoulder dystocia; O69.1XX0 Labor and delivery complicated by cord around neck, with compression, not applicable or unspecified; O99.52 Diseases of the respiratory system complicating childbirth; J45.909 Unspecified asthma, uncomplicated; Z30.09 Encounter for other general counseling and advice on contraception; Z3A.37 37 weeks gestation of pregnancy; Z37.0 Single live birth
CPT/HCPCS: 80074; 80307; 81001; 82805; 84112; 85025; 86592; 86703; 86762; 88307; 90715; 99285; G0481; J2590; J7120